=== PATIENT | male | born 1965 | race Two or more races ===

== ENCOUNTER 2021-09-17 17:12 | Inpatient (IN) | payer OTHER ==
[2021-09-17 18:28] VITALS: BMI 20.7
[2021-09-17] MEDS ORDERED: MAGNESIUM HYDROX 2400MG/30ML ORAL SUSPENSION 30 ML CUP PO PRN (20:58)
[2021-09-17] MEDS ORDERED: hydrOXYzine PAMOATE 25 MG CAPSULE (FP) PO PRN (20:58)
[2021-09-17] MEDS ORDERED: MAGNESIUM CITRATE 300 ML BOTTLE PO PRN (20:58)
[2021-09-17] MEDS ORDERED: MAG HYDROX/AL HYDROX/SIMETH 30 ML UNIT-DOSE CUP PO PRN (20:58)
[2021-09-17] MEDS ORDERED: P-EPHED 60MG/TRIPROLIDI 2.5MG TABLET PO PRN (20:58)
[2021-09-17] MEDS ORDERED: guaiFENesin 200 MG/10 ML 10 ML UNIT-DOSE CUPS PO PRN (20:58)
[2021-09-17] MEDS ORDERED: LOPERAMIDE HCL 2 MG CAPSULE PO PRN (20:58)
[2021-09-18] MEDS ORDERED: IBUPROFEN 400 MG TABLET (FP) PO ONE (01:04)
[2021-09-18] MEDS: IBUPROFEN 400 MG TABLET (FP) PO PRN ×2 (01:06→08:38)
[2021-09-18] MEDS: INSULIN SLIDING SCALE (NOVOLOG) 1 VIAL SQ SCH ×5 (02:05→21:24)
[2021-09-18] MEDS: INSULIN (LEVEMIR) 100 UNITS/ML UNITS SQ SCH ×3 (02:05→21:23)
[2021-09-18] MEDS: THIAMINE HCL 100 MG TABLET (FP) PO SCH ×2 (02:07→21:22)
[2021-09-18] MEDS: MELATONIN 5 MG TABLETS PO PRN ×2 (02:08→21:22)
[2021-09-18] MEDS ORDERED: INSULIN SLIDING SCALE (NOVOLOG) 1 VIAL SQ ONE ×3 (07:18→21:00)
[2021-09-18] MEDS ORDERED: TUBERCULIN PPD 5 TU/0.1ML VIAL ID ONE (07:19)
[2021-09-18] MEDS ORDERED: IBUPROFEN 600 MG TABLET (FP) PO PRN (08:44)
[2021-09-18] MEDS: LIDOCAINE 5% TOPICAL PATCH TP SCH (10:01)
[2021-09-18] MEDS: PRENATAL VITAMINS W/ FOLIC ACID TABLET (FP) PO SCH (10:02)
[2021-09-18 10:41] LABS: PH,URINE 5.5 (5.0-8.0); URINE APPEARANCE CLEAR; URINE BILIRUBIN NEGATIVE (NEGATIVE); URINE COLOR YELLOW; URINE GLUCOSE (UA) 3+ (NEGATIVE); URINE KETONE NEGATIVE (NEGATIVE); URINE LEUK ESTERASE NEGATIVE (NEGATIVE); URINE NITRITE NEGATIVE (NEGATIVE); URINE PROTEIN NEGATIVE (NEGATIVE); URINE UROBILINOGEN 0.2 mg/dL (0.2-1.0)
[2021-09-18 10:45] LABS: HEMATOCRIT 38.8 % (35.4-49); HEMOGLOBIN 12.8 GM/dL (11.7-16.9); MCH 29.3 pg (25.7-33.7); MCHC 32.9 g/dl (32.0-35.9); MEAN CELL VOLUME 89.3 fl (80-96); MEAN PLT VOLUME 8.9 fl (7.5-11.1); PLATELET COUNT 201 10^3/uL (134-434); RBC 4.35 M/mm3 (4.00-5.60); RDW 16.7 % (11.9-15.9); WHITE BLOOD COUNT 5.9 K/mm3 (4.0-10.0)
[2021-09-18 10:59] LABS: CALCIUM 8.5 mg/dL (8.5-10.1)
[2021-09-18 11:00] LABS: ALBUMIN 3.1 g/dl (3.4-5.0)
[2021-09-18 11:03] LABS: CREATININE 0.8 mg/dL (0.55-1.3)
[2021-09-18 11:04] LABS: BILIRUBIN,TOTAL 0.9 mg/dL (0.2-1); TOT PROT 6.8 g/dl (6.4-8.2)
[2021-09-18] MEDS: LIDOCAINE PATCH REMOVAL MC SCH (21:23)
[2021-09-18] MEDS: METHYL SALICYLATE/MENTHOL OINT 30 GM TUBE TP SCH (21:24)
[2021-09-18] MEDS: ACETAMINOPHEN 325 MG TABLET (FP) PO PRN (21:25)
[2021-09-19] MEDS: INSULIN (LEVEMIR) 100 UNITS/ML UNITS SQ SCH ×2 (06:10→21:02)
[2021-09-19] MEDS: INSULIN SLIDING SCALE (NOVOLOG) 1 VIAL SQ SCH ×4 (06:10→21:03)
[2021-09-19] MEDS: ACETAMINOPHEN 325 MG TABLET (FP) PO PRN (06:54)
[2021-09-19] MEDS: LIDOCAINE 5% TOPICAL PATCH TP SCH (10:29)
[2021-09-19] MEDS: PRENATAL VITAMINS W/ FOLIC ACID TABLET (FP) PO SCH (10:29)
[2021-09-19] MEDS: METHYL SALICYLATE/MENTHOL OINT 30 GM TUBE TP SCH (10:30)
[2021-09-19] MEDS: IBUPROFEN 600 MG TABLET (FP) PO PRN ×2 (10:32→16:39)
[2021-09-19] MEDS: MELATONIN 5 MG TABLETS PO PRN (21:02)
[2021-09-19] MEDS: THIAMINE HCL 100 MG TABLET (FP) PO SCH (21:02)
[2021-09-19] MEDS: LIDOCAINE PATCH REMOVAL MC SCH (21:03)
[2021-09-20 00:06] LABS: SARS-CoV-2 NAA Not Detected (Not Detected)
[2021-09-20] MEDS: ACETAMINOPHEN 325 MG TABLET (FP) PO PRN (01:33)
[2021-09-20] MEDS: INSULIN SLIDING SCALE (NOVOLOG) 1 VIAL SQ SCH ×4 (06:31→21:14)
[2021-09-20] MEDS: INSULIN (LEVEMIR) 100 UNITS/ML UNITS SQ SCH ×2 (06:32→21:14)
[2021-09-20] MEDS: METHYL SALICYLATE/MENTHOL OINT 30 GM TUBE TP SCH (10:21)
[2021-09-20] MEDS: LIDOCAINE 5% TOPICAL PATCH TP SCH (10:21)
[2021-09-20] MEDS: PRENATAL VITAMINS W/ FOLIC ACID TABLET (FP) PO SCH (10:21)
[2021-09-20] MEDS ORDERED: INSULIN SLIDING SCALE (NOVOLOG) 1 VIAL SQ ONE ×2 (16:21→20:54)
[2021-09-20] MEDS: IBUPROFEN 600 MG TABLET (FP) PO PRN ×2 (16:22→21:13)
[2021-09-20] MEDS: MELATONIN 5 MG TABLETS PO PRN (21:12)
[2021-09-20] MEDS: THIAMINE HCL 100 MG TABLET (FP) PO SCH (21:13)
[2021-09-20] MEDS: LIDOCAINE PATCH REMOVAL MC SCH (21:13)
[2021-09-21] MEDS: INSULIN SLIDING SCALE (NOVOLOG) 1 VIAL SQ SCH ×4 (06:58→22:00)
[2021-09-21] MEDS: INSULIN (LEVEMIR) 100 UNITS/ML UNITS SQ SCH ×2 (07:01→22:01)
[2021-09-21] MEDS: METHYL SALICYLATE/MENTHOL OINT 30 GM TUBE TP SCH (10:29)
[2021-09-21] MEDS: PRENATAL VITAMINS W/ FOLIC ACID TABLET (FP) PO SCH (10:29)
[2021-09-21] MEDS: LIDOCAINE 5% TOPICAL PATCH TP SCH (10:29)
[2021-09-21] MEDS: THIAMINE HCL 100 MG TABLET (FP) PO SCH (21:56)
[2021-09-21] MEDS: MELATONIN 5 MG TABLETS PO PRN (21:56)
[2021-09-21] MEDS: IBUPROFEN 600 MG TABLET (FP) PO PRN (21:57)
[2021-09-21] MEDS: LIDOCAINE PATCH REMOVAL MC SCH (22:01)
[2021-09-22] MEDS: INSULIN (LEVEMIR) 100 UNITS/ML UNITS SQ SCH ×2 (06:42→21:51)
[2021-09-22] MEDS: INSULIN SLIDING SCALE (NOVOLOG) 1 VIAL SQ SCH ×4 (06:43→21:50)
[2021-09-22] MEDS: PRENATAL VITAMINS W/ FOLIC ACID TABLET (FP) PO SCH (10:05)
[2021-09-22] MEDS: LIDOCAINE 5% TOPICAL PATCH TP SCH (10:06)
[2021-09-22] MEDS: METHYL SALICYLATE/MENTHOL OINT 30 GM TUBE TP SCH (10:06)
[2021-09-22] MEDS: IBUPROFEN 600 MG TABLET (FP) PO PRN ×2 (10:07→21:31)
[2021-09-22] MEDS ORDERED: INSULIN (LEVEMIR) 100 UNITS/ML UNITS SQ ONE (12:25)
[2021-09-22] MEDS: THIAMINE HCL 100 MG TABLET (FP) PO SCH (21:31)
[2021-09-22] MEDS: MELATONIN 5 MG TABLETS PO PRN (21:31)
[2021-09-22] MEDS: LIDOCAINE PATCH REMOVAL MC SCH (21:32)
[2021-09-23] MEDS: INSULIN (LEVEMIR) 100 UNITS/ML UNITS SQ SCH ×2 (06:33→21:02)
[2021-09-23] MEDS: INSULIN SLIDING SCALE (NOVOLOG) 1 VIAL SQ SCH ×4 (06:34→21:01)
[2021-09-23] MEDS: PRENATAL VITAMINS W/ FOLIC ACID TABLET (FP) PO SCH (10:17)
[2021-09-23] MEDS: METHYL SALICYLATE/MENTHOL OINT 30 GM TUBE TP SCH (10:18)
[2021-09-23] MEDS: LIDOCAINE 5% TOPICAL PATCH TP SCH (10:18)
[2021-09-23] MEDS: IBUPROFEN 600 MG TABLET (FP) PO PRN ×2 (10:18→16:43)
[2021-09-23] MEDS ORDERED: INSULIN SLIDING SCALE (NOVOLOG) 1 VIAL SQ ONE (12:10)
[2021-09-23] MEDS: THIAMINE HCL 100 MG TABLET (FP) PO SCH (21:01)
[2021-09-23] MEDS: MELATONIN 5 MG TABLETS PO PRN (21:01)
[2021-09-23] MEDS: LIDOCAINE PATCH REMOVAL MC SCH (21:02)
[2021-09-24] MEDS: IBUPROFEN 600 MG TABLET (FP) PO PRN ×2 (06:00→21:17)
[2021-09-24] MEDS: INSULIN (LEVEMIR) 100 UNITS/ML UNITS SQ SCH ×2 (06:01→21:20)
[2021-09-24] MEDS: INSULIN SLIDING SCALE (NOVOLOG) 1 VIAL SQ SCH ×4 (06:02→21:21)
[2021-09-24] MEDS: LIDOCAINE 5% TOPICAL PATCH TP SCH (10:06)
[2021-09-24] MEDS: METHYL SALICYLATE/MENTHOL OINT 30 GM TUBE TP SCH (10:06)
[2021-09-24] MEDS: PRENATAL VITAMINS W/ FOLIC ACID TABLET (FP) PO SCH (10:06)
[2021-09-24] MEDS ORDERED: INSULIN SLIDING SCALE (NOVOLOG) 1 VIAL SQ ONE (12:07)
[2021-09-24] MEDS ORDERED: INSULIN (NOVOLOG) ASPART 100 UNITS/ML 10ML VIAL SQ SCH (16:30)
[2021-09-24] MEDS: MELATONIN 5 MG TABLETS PO PRN (21:16)
[2021-09-24] MEDS: THIAMINE HCL 100 MG TABLET (FP) PO SCH (21:16)
[2021-09-24] MEDS: LIDOCAINE PATCH REMOVAL MC SCH (21:21)
[2021-09-25] MEDS: INSULIN SLIDING SCALE (NOVOLOG) 1 VIAL SQ SCH ×4 (05:59→21:19)
[2021-09-25] MEDS: METHYL SALICYLATE/MENTHOL OINT 30 GM TUBE TP SCH (10:05)
[2021-09-25] MEDS: PRENATAL VITAMINS W/ FOLIC ACID TABLET (FP) PO SCH (10:05)
[2021-09-25] MEDS: LIDOCAINE 5% TOPICAL PATCH TP SCH (10:05)
[2021-09-25] MEDS: MELATONIN 5 MG TABLETS PO PRN (21:17)
[2021-09-25] MEDS: THIAMINE HCL 100 MG TABLET (FP) PO SCH (21:17)
[2021-09-25] MEDS: IBUPROFEN 600 MG TABLET (FP) PO PRN (21:18)
[2021-09-25] MEDS: INSULIN (LEVEMIR) 100 UNITS/ML UNITS SQ SCH (21:19)
[2021-09-25] MEDS: LIDOCAINE PATCH REMOVAL MC SCH (21:19)
[2021-09-26] MEDS: INSULIN SLIDING SCALE (NOVOLOG) 1 VIAL SQ SCH ×4 (06:28→21:04)
[2021-09-26] MEDS: IBUPROFEN 600 MG TABLET (FP) PO PRN ×3 (06:30→21:03)
[2021-09-26] MEDS: PRENATAL VITAMINS W/ FOLIC ACID TABLET (FP) PO SCH (10:29)
[2021-09-26] MEDS: LIDOCAINE 5% TOPICAL PATCH TP SCH (10:30)
[2021-09-26] MEDS: METHYL SALICYLATE/MENTHOL OINT 30 GM TUBE TP SCH (10:30)
[2021-09-26] MEDS: MELATONIN 5 MG TABLETS PO PRN (21:03)
[2021-09-26] MEDS: THIAMINE HCL 100 MG TABLET (FP) PO SCH (21:03)
[2021-09-26] MEDS: LIDOCAINE PATCH REMOVAL MC SCH (21:04)
[2021-09-26] MEDS: INSULIN (LEVEMIR) 100 UNITS/ML UNITS SQ SCH (21:04)
[2021-09-27] MEDS: IBUPROFEN 600 MG TABLET (FP) PO PRN (06:06)
[2021-09-27] MEDS: INSULIN SLIDING SCALE (NOVOLOG) 1 VIAL SQ SCH (06:08)
[2021-09-27 07:20] VITALS: BP 144/95; PULSE 87; TEMP 87
[2021-09-27] MEDS: METHYL SALICYLATE/MENTHOL OINT 30 GM TUBE TP SCH (09:57)
[2021-09-27] MEDS: LIDOCAINE 5% TOPICAL PATCH TP SCH (09:57)
[2021-09-27] MEDS: PRENATAL VITAMINS W/ FOLIC ACID TABLET (FP) PO SCH (09:57)
== END 2021-09-27 11:05 | disposition home or self-care (01) | DRG 772 ==
LOC: YASAS 17:12 → Y3W 09-18 01:02
PROVIDERS: ADMIT Allergy & Immunology; ATTEND Surgery
PROC: HZ42ZZZ Group Counseling for Substance Abuse Treatment, Cognitive-Behavioral (ICD-10-PCS; principal; 2021-09-18)
DX: F10.20 Alcohol dependence, uncomplicated (principal); F17.210 Nicotine dependence, cigarettes, uncomplicated; E11.40 Type 2 diabetes mellitus with diabetic neuropathy, unspecified; Z79.4 Long term (current) use of insulin
CPT/HCPCS: 36415; 80053; 81003; 82962; 85027; 86780; C9803-CS; U0003; U0005